=== PATIENT | male | born 1980 | race Hispanic/Latino ===

== ENCOUNTER 2023-03-24 11:27 | Emergency (ER) | payer OTHER ==
[~2023-03-24] VITALS: Ht 175.3 cm; Wt 103.2 kg
[2023-03-24 11:28] VITALS: BP 137/75
[2023-03-24] MEDS ORDERED: KETOROLAC 30 MG/ML 1ML VIAL IM ONE (13:00)
[2023-03-24] MEDS ORDERED: METH-1165 PO (13:02)
[2023-03-24] MEDS ORDERED: KETO10TAB PO (13:02)
== END 2023-03-24 13:13 | disposition home or self-care (01) ==
LOC: M ED 11:27
DX: M54.31 Sciatica, right side (principal); Z79.1 Long term (current) use of non-steroidal anti-inflammatories (NSAID); Z79.899 Other long term (current) drug therapy
CPT/HCPCS: 96372; 99282; J1885

== ENCOUNTER → 2023-04-21 | Outpatient (CLI) | payer OTHER ==
[~2023-04-21] MED LIST: KETO10TAB PO; METH-1165 PO
[2023-04-21 07:26] LABS: HEMATOCRIT 42.8 % (42.0-52.0); HEMOGLOBIN 14.2 g/dl (13.5-17.5); MEAN CORPUSCULAR HEMOGLOBIN 28.6 pg (27.0-33.0); MEAN CORPUSCULAR HGB CONC 33.2 g/dl (32.0-36.5); MEAN CORPUSCULAR VOLUME 86.1 fl (80.0-96.0); PLATELET COUNT, AUTOMATED 221 10^3/uL (150-450); RED BLOOD COUNT 4.97 10^6/uL (4.30-6.10)
[2023-04-21 07:42] LABS: HEMOGLOBIN A1c 6.1 % (4.0-6.0)
[2023-04-21 07:59] LABS: ALBUMIN 3.9 G/DL (3.2-5.2); ALKALINE PHOSPHATASE 52 U/L (46-116); ALT/SGPT 22 U/L (7.0-40); AST/SGOT 16 U/L (<34); BILIRUBIN,TOTAL 0.5 MG/DL (0.3-1.2); BLOOD UREA NITROGEN 20 MG/DL (9-23); CALCIUM LEVEL 9.1 MG/DL (8.5-10.1); CARBON DIOXIDE LEVEL 30 MMOL/L (20-31); CHLORIDE LEVEL 106 MMOL/L (98-107); CHOLESTEROL LEVEL 167 MG/DL (<200); CHOLESTEROL RISK RATIO 4.77 (<5); CREATININE FOR GFR 1.11 MG/DL (0.70-1.30); GLOMERULAR FILTRATION RATE > 60.0 (>60); GLUCOSE, FASTING 104 MG/DL (60-100); LDL CHOLESTEROL 110.4 MG/DL (<100); POTASSIUM SERUM 4.4 MMOL/L (3.5-5.1); SODIUM LEVEL 140 MMOL/L (136-145); TOTAL PROTEIN 7.3 G/DL (5.7-8.2); TRIGLYCERIDES LEVEL 108 MG/DL (<150)
[2023-04-21 08:01] LABS: TESTOSTERONE 334 NG/DL (241-827); THYROID STIMULATING HORMONE 2.264 uIU/ML (0.55-4.78); TOTAL 25(OH) VITAMIN D 16.6 NG/ML (20.0-100.0)
== END ==
LOC: M RAD 06:21
PROVIDERS: ATTEND Family Medicine
DX: I10 Essential (primary) hypertension (principal)

== ENCOUNTER → 2023-05-16 | Outpatient (CLI) | payer OTHER | LOC: M RAD 06:27 | PROVIDERS: ATTEND Family Medicine | DX: M54.30 Sciatica, unspecified side (principal) ==

== ENCOUNTER 2023-05-29 12:08 | Emergency (ER) | payer OTHER ==
[~2023-05-29] VITALS: Ht 177.8 cm; Wt 96.6 kg
[2023-05-29] MEDS ORDERED: MELO15TA28 (12:37)
[2023-05-29] MEDS ORDERED: IBUP200C25 PO (12:37)
[2023-05-29] MEDS ORDERED: ACET-683 PO (12:37)
[2023-05-29 12:54] LABS: BASO % 0.3 % (0.0-1.0); EOS # 0.1 10^3/uL (0.0-0.5); EOS % 1.3 % (0.0-3.0); HEMATOCRIT 41.4 % (42.0-52.0); HEMOGLOBIN 13.9 g/dl (13.5-17.5); LYMPH # 2.7 10^3/uL (1.5-5.0); LYMPH % 38.4 % (24.0-44.0); MEAN CORPUSCULAR HEMOGLOBIN 29.1 pg (27.0-33.0); MEAN CORPUSCULAR HGB CONC 33.6 g/dl (32.0-36.5); MEAN CORPUSCULAR VOLUME 86.6 fl (80.0-96.0); MONO # 0.4 10^3/uL (0.0-0.8); NEUTROPHILS # 3.8 10^3/uL (1.5-8.5); NEUTROPHILS % 53.9 % (36.0-66.0); PLATELET COUNT, AUTOMATED 224 10^3/uL (150-450); RED BLOOD COUNT 4.78 10^6/uL (4.30-6.10)
[2023-05-29 13:15] LABS: CK-MB VALUE MASS < 1.0 NG/ML (<3.6)
[2023-05-29 13:18] LABS: ALBUMIN 3.6 G/DL (3.2-5.2); ALKALINE PHOSPHATASE 57 U/L (46-116); ALT/SGPT 22 U/L (7.0-40); AST/SGOT < 8 U/L (<34); BILIRUBIN,DIRECT < 0.1 MG/DL (<0.4); BILIRUBIN,TOTAL 0.4 MG/DL (0.3-1.2); BLOOD UREA NITROGEN 15 MG/DL (9-23); CALCIUM LEVEL 8.2 MG/DL (8.5-10.1); CARBON DIOXIDE LEVEL 31 MMOL/L (20-31); CHLORIDE LEVEL 107 MMOL/L (98-107); CPK CREATINE PHOSPHOKINASE 132 U/L (46-171); CREATININE FOR GFR 1.05 MG/DL (0.70-1.30); GLOMERULAR FILTRATION RATE > 60.0 (>60); GLUCOSE, FASTING 97 MG/DL (60-100); MB/CK RELATIVE INDEX 0.75 (< OR =4); POTASSIUM SERUM 3.7 MMOL/L (3.5-5.1); SODIUM LEVEL 141 MMOL/L (136-145)
[2023-05-29 13:20] LABS: FREE T4 1.05 NG/DL (0.89-1.76); THYROID STIMULATING HORMONE 2.553 uIU/ML (0.55-4.78)
[2023-05-29] MEDS ORDERED: ASPIRIN 81MG CHEW TABLET PO ONE (13:20)
[2023-05-29] MEDS ORDERED: hydrALAZINE 20MG/ML 1ML VIAL IV ONE (14:15)
[2023-05-29 14:20] VITALS: BP 174/102
[2023-05-29 14:21] LABS: CK-MB VALUE MASS < 1.0 NG/ML (<3.6)
[2023-05-29 14:23] LABS: CPK CREATINE PHOSPHOKINASE 125 U/L (46-171)
[2023-05-29] MEDS ORDERED: ISOVUE-370 76% 100ML VIAL As Ordered ONE (14:26)
[2023-05-29] MEDS ORDERED: diphenhydrAMINE 50MG/ML VIAL IV STA (14:51)
[2023-05-29 17:00] VITALS: BP 115/68; TEMP 97.8; O2SAT 97
== END 2023-05-29 17:28 | disposition home or self-care (01) ==
LOC: M ED 12:08
DX: R07.9 Chest pain, unspecified (principal); I10 Essential (primary) hypertension; R00.1 Bradycardia, unspecified; M54.30 Sciatica, unspecified side; F17.200 Nicotine dependence, unspecified, uncomplicated; Z79.1 Long term (current) use of non-steroidal anti-inflammatories (NSAID); Z79.899 Other long term (current) drug therapy
CPT/HCPCS: 71046; 71275; 80048; 80076; 82550; 82553; 84439; 84443; 84484; 85025; 93005; 93041; 94760; 96374; 96375; 99285; J0360; J1200; Q9967

== ENCOUNTER 2024-09-04 11:06 | Emergency (ER) | payer OTHER ==
[~2024-09-04] VITALS: Ht 177.8 cm; Wt 92.5 kg
[~2024-09-04 11:06] MED LIST changes: +ACET-683 PO; +IBUP200C25 PO; +MELO15TA28
[2024-09-04 11:10] VITALS: BP 142/89; TEMP 97; O2SAT 96
== END 2024-09-04 12:50 | disposition left against medical advice (07) ==
LOC: M ED 11:06
DX: Z53.21 Procedure and treatment not carried out due to patient leaving prior to being seen by health care provider (principal)